=== PATIENT | male | born 2005 | race Asian ===

== ENCOUNTER 2023-02-09 16:03 | Emergency (ER) | payer OTHER, SELFPAY ==
[2023-02-09 16:10] VITALS: BP 128/85; PULSE 97; RESP 16; TEMP 36.4; O2SAT 98; BMI 21.0
[2023-02-09 16:57] LABS: Strep A DNA Probe* NOT DETECTED (Not Detectd)
[2023-02-09 17:02] LABS: PCR FLU A Negative PCR FLU A (Negative); PCR FLU B Negative PCR FLU B (Negative); PCR RSV Negative PCR RSV (Negative)
[2023-02-09 17:05] LABS: SARS PCR* Negative SARS-CoV-2 (Negative)
--- NOTE | 2023-02-09 17:17 | ED.GENADULT ---
HPI - General Adult General Chief complaint: Cough Stated complaint: Cough Sore Throat Time Seen by Provider: 02/09/23 16:38 History of Present Illness HPI narrative: This 18-year-old male comes in reporting upper respiratory symptoms for the past couple days including sore throat, some nasal congestion, and cough usually at night. He does not report any fevers or shortness of breath. He states that other people around him at school have similar symptoms. Related Data Allergies Allergy/AdvReac Type Severity Reaction Status Date / Time No Known Drug Allergies Allergy Verified 02/09/23 16:14 Review of Systems Status of ROS: Reports: 10 or more systems reviewed and unremarkable except as noted in History and below Narrative: Constitutional: No fevers, no weight gain or loss. Eyes: No discharge. No vision changes. HENT: Sore throat with some nasal congestion. No ear pain. Cardiovascular: No chest pain, no palpitations. Respiratory: No shortness of breath, no wheezes. Occasional cough. Gastrointestinal: No abdominal pain, no vomiting, no diarrhea. Genitourinary: No dysuria, no hematuria. Musculoskeletal: Normal range of motion. Skin: No rashes, no pruritis. Neurological: No dizziness, weakness, sensory change, speech change. Endo/Heme/Allergies: No bruising or bleeding. No polydipsia. Pysch: no suicidality, no anxiety, no insomnia. All other systems reviewed and are negative. Exam Narrative: Exam Narrative: Constitutional: Well-developed, well-nourished, no acute distress. HEENT: Normocephalic, atraumatic. Oropharynx has some mild erythema without exudate or swelling. Neck: Normal range of motion. Nontender. Supple. Heart: Regular. No murmurs. Normal rate. Intact distal pulses. Lungs: Clear to auscultation. No chest discomfort. No wheezes, rhonchi, or rales. Abdomen: Normal bowel sounds. Nontender. No rebound tenderness. Genitalia: Deferred. Back: No midline tenderness. Normal range of motion. Extremities: Normal range of motion. No injury. Skin: Intact. No rash. Warm. No erythema or pallor. Neurologic: No altered sensation. No weakness. Alert and oriented. Psychiatric: No suicidality. No anxiety or depression. No insomnia. Nursing notes and vitals signs are reviewed. Const: Vital Signs, click to edit/add: Vital Signs - 24 hr 02/09/23 16:10 Temperature 97.6 F Pulse Rate [Left P ulse Oximeter] 97 Respiratory Rate 16 Blood Pressure [Ri ght Upper Arm] 128/85 Pulse Oximetry 98 Oxygen Delivery Me thod Room Air Course Vital Signs Vital signs: Initial Vital Signs Temperature 97.6 F 02/09/23 16:10 Temperature Source Temporal Artery Scan 02/09/23 16:10 Pulse Rate 97 02/09/23 16:10 Pulse Rhythm 02/09/23 16:10 Pulse Strength 3+ Normal 02/09/23 16:10 Respiratory Rate 16 02/09/23 16:10 Blood Pressure 128/85 02/09/23 16:10 Blood Pressure Mean 99 02/09/23 16:10 Blood Pressure Position Sitting 02/09/23 16:10 Pulse Oximetry 98 02/09/23 16:10 Oxygen Delivery Method 02/09/23 16:10 Vital Signs Temperature 97.6 F 02/09/23 16:10 Pulse Rate 97 02/09/23 16:10 Respiratory Rate 16 02/09/23 16:10 Blood Pressure 128/85 02/09/23 16:10 Pulse Oximetry 98 02/09/23 16:10 Oxygen Delivery Method 02/09/23 16:10 Temperature 97.6 F 02/09/23 16:10 Pulse Rate 97 02/09/23 16:10 Respiratory Rate 16 02/09/23 16:10 Blood Pressure 128/85 02/09/23 16:10 Pulse Oximetry 98 02/09/23 16:10 Oxygen Delivery Method 02/09/23 16:10 Medical Decision Making MDM Narrative Medical decision making narrative: Testing for strep, influenza, COVID, and RSV all returned negative. This patient has normal vital signs. He has some viral upper respiratory infection causing his symptoms. He did receive an oral dose of dexamethasone 10 mg. I encouraged use of [id number] medicines also as needed and directed. Lab Data Labs: Lab Results 02/09/23 02/09/23 Range/Units 16:16 16:16 SARS-CoV-2 (PCR) Negative SARS-CoV-2 (Negative) Influenza Type A (PCR) Negative PCR FLU A (Negative) Influenza Type B (PCR) Negative PCR FLU B (Negative) RSV (PCR) Negative PCR RSV (Negative) Group A Strep DNA NOT DETECTED (Not Detectd) Discharge Plan Discharge Clinical Impression: Acute upper respiratory infection Patient Disposition: Home, Self-Care Condition: Stable Additional Instructions: Use [id number] medicines as needed and directed. Follow up with MD or return if worsening symptoms occur. Stand Alone Forms: [employer] Info Instructions
[2023-02-09] MEDS: dexAMETHasone 10 MG/ML inj PO (17:26)
== END 2023-02-09 17:27 | disposition home or self-care (01) ==
PROVIDERS: Emergency Provider Emergency Medicine Emergency Medical Services
DX: Z20.822 Contact with and (suspected) exposure to COVID-19 (principal); J06.9 Acute upper respiratory infection, unspecified; J02.9 Acute pharyngitis, unspecified
CPT/HCPCS: 87502; 87634; 87635; 87651; 99283; 99284; J1100